=== PATIENT | male | born 1970 | race Caucasian/White ===

== ENCOUNTER 2021-01-27 14:24 | Emergency (ER) | payer OTHER, SELFPAY ==
--- NOTE | 2021-01-27 14:46 | ED.GENADULT ---
HPI - General Adult General Chief complaint: Skin/Abscess/Foreign Body Stated complaint: Rash Source: patient Mode of arrival: ambulatory Limitations: no limitations History of Present Illness HPI narrative: Nima is a previously healthy 50M that presented to clinic with a new rash. It started yesterday at work at [employer] A coworker has the same rash at the same time. It is a very itchy maculopapular rash mostly on his right upper extremity going up to his neck. There are a few spots on his left arm. He denies any other symptoms. He is not aware of any new irritants at work or home. Related Data Allergies Allergy/AdvReac Type Severity Reaction Status Date / Time No Known Allergies Allergy Verified 01/27/21 15:03 Review of Systems Constitutional: Constitutional: Reports no additional constitutional complaints Eyes: Eyes: Reports no additional eye complaints ENT: Reports system reviewed and no additional complaints, except as documented Cardiovascular: Cardiovascular: Reports no additional cardiovascular complaints Respiratory: Respiratory: Reports no additional respiratory complaints Gastrointestinal: Gastrointestinal: Reports no additional gastrointestinal complaints Genitourinary: Genitourinary: Reports no additional male genitourinary complaints Musculoskeletal: Musculoskeletal: Reports no additional musculoskeletal complaints Integumentary/Breasts: Skin/Breast: Reports as per HPI Neurologic: Reports system reviewed and no additional complaints, except as documented Psychiatric: Psychiatric: Reports no additional psychiatric complaints Endocrine: Endocrine: Reports no additional endocrine complaints Hematologic/Lymphatic: Hematologic/Lymphatic: Reports no additional hematologic/lymphatic complaints Allergic/Immunologic: Allergic/Immunologic: Reports no additional allergic/immunologic complaints Exam Const: General: no acute distress and alert Orientation/consciousness: patient oriented x3 Limitations: No altered mental status HENMT: Head: normal to inspection Mouth: Yes Normal oral and palatal mucosa present Eyes: Conjunctivae: conjunctivae normal Pupils: Equal, round and reactive pupils present Neck: Neck: normal visual inspection Chest: Chest palpation & inspection: normal inspection of the chest Resp: Effort & Inspection: normal respiratory effort, not labored and not tachypneic Cardio: Rate: regular rate Heart sounds: no murmurs Skin: Other: Maculopapular erythematous rash with excoriation from the right mid forearm up to the right side of the neck. There was a small amount present on the left as well. Neuro: General: patient oriented x3 and moves all extremities Extrem: General: normal to inspection Psych: Mental Status: mental status grossly normal Course Vital Signs Vital signs: Vital Signs Temperature 98.1 F 01/27/21 14:55 Pulse Rate 63 01/27/21 14:55 Respiratory Rate 20 01/27/21 14:55 Blood Pressure 116/82 01/27/21 14:55 Pulse Oximetry 97 01/27/21 14:55 Temperature 98.1 F 01/27/21 14:55 Pulse Rate 63 01/27/21 14:55 Respiratory Rate 20 01/27/21 14:55 Blood Pressure 116/82 01/27/21 14:55 Pulse Oximetry 97 01/27/21 14:55 Medical Decision Making Vital Signs Vital Signs: Vital Signs Temperature 98.1 F 01/27/21 14:55 Pulse Rate 63 01/27/21 14:55 Respiratory Rate 20 01/27/21 14:55 Blood Pressure 116/82 01/27/21 14:55 Pulse Oximetry 97 01/27/21 14:55 Temperature 98.1 F 01/27/21 14:55 Pulse Rate 63 01/27/21 14:55 Respiratory Rate 20 01/27/21 14:55 Blood Pressure 116/82 01/27/21 14:55 Pulse Oximetry 97 01/27/21 14:55 Discharge Plan Discharge Clinical Impression: Contact dermatitis Patient Disposition: Home, Self-Care Condition: Stable Instructions: Contact Dermatitis (ED) Additional Instructions: Please return to the ED for any new, concerning or worsening symptoms. Prescript
[2021-01-27 14:55] VITALS: BP 116/82; PULSE 63; RESP 20; TEMP 36.7; O2SAT 97
== END 2021-01-27 15:09 | disposition home or self-care (01) ==
PROVIDERS: Emergency Provider Family Medicine
DX: L25.9 Unspecified contact dermatitis, unspecified cause (principal)
CPT/HCPCS: 99283

== ENCOUNTER 2024-09-14 12:46 | Emergency (ER) | payer OTHER, SELFPAY ==
--- NOTE | ~2024-09-14 | CT_ITS ---
EXAMINATION: CT abdomen pelvis wo con DATE: 09/14/2024 13:18 INDICATION: Right flank pain and low back pain TECHNIQUE: Computed tomography (CT) of the abdomen and pelvis was performed without intravenous contr ast. Automated exposure control and iterative reconstruction technique were employed. The dose-length product was 969.16 mGy-cm. COMPARISON: None FINDINGS: Lung bases are clear. Heart size normal. No pericardial or pleural effusion. Hepatic cysts the larges t measuring 2.4 cm the right hepatic lobe. Gallbladder, spleen, pancreas, bilateral adrenal glands an d right kidney are normal. Parapelvic cysts at the left renal hilum. Prostatomegaly. Bladder is nemo l. Bowels including the appendix are normal. No free intraperitoneal gas or fluid. No pathologically enlarged abdominal or pelvic lymphadenopathy. Mild lumbar spondylosis. IMPRESSION: 1. No acute intra-abdominal/pelvic process. Reviewed, dictated and finalized at location A.
[2024-09-14 12:48] VITALS: BP 145/101; PULSE 65; RESP 18; TEMP 36.6; O2SAT 93
[2024-09-14] MEDS: KETOROLAC (*BKC) 60 MG/2 ML VIAL IM (13:22)
--- NOTE | 2024-09-14 13:50 | ED.BACK ---
HPI - Back Pain/Injury General Chief Complaint: Back Pain/Injury Stated Complaint: right flank pain Time Seen by Provider: 09/14/24 12:48 Source: patient and family Mode of arrival: ambulatory Limitations: no limitations History of Present Illness HPI Narrative: This is a 54-year-old male with no significant past medical history that presents with right lower back pain radiating into his right leg with no saddle paresthesias no fever chills no known injury no abdominal pain no flank pain and no chest pain or shortness of breath. MD elicited complaint: back pain Onset (ago): hour(s) Timing: constant Severity: severe Pain scale (0-10): 8 Similar Symptoms Previously: No Quality: aching and spasming Location: right lower back Radiation: right upper leg Exacerbating factors: movement and sitting upright Relieving factors: immobilization Related Data Allergies Allergy/AdvReac Type Severity Reaction Status Date / Time No Known Allergies Allergy Verified 09/14/24 12:57 Review of Systems Review of Systems: All systems reviewed & are unremarkable except as noted in HPI and below PMFSH Past Medical History Medical History Patient denies medical problems Exam Const: General: healthy appearing and no acute distress Nutritional Appearance: well nourished Orientation/consciousness: patient oriented x3 Limitations: no limitations HENMT: Head: normal to inspection Neck: Neck: normal visual inspection, no lymphadenopathy and no meningeal signs Chest: Chest palpation & inspection: normal inspection of the chest Resp: Effort & Inspection: normal respiratory effort Auscultation: clear to auscultation bilaterally Cardio: Rate: regular rate Rhythm: regular rhythm GI: Auscultation: normal bowel sounds : General: Yes bladder normal to palpation Back/Spine/Pelvis: Back: no CVA tenderness Skin: General skin exam: normal color Rashes: no rashes Wounds: no wounds Neuro: General: patient oriented x3, moves all extremities, no meningeal signs and no focal motor deficits Extrem: Other: positive straight leg raising test on the right with some L5 right paravertebral tenderness with palpation Course Course Emergency Course: patient had 60mg IM Toradol and after reassessment pain level has significantly improved, CT scan shows no intra into her abdominal process. Vital Signs Vital signs: Vital Signs Temperature 36.6 C 09/14/24 12:48 Pulse Rate 65 09/14/24 12:48 Respiratory Rate 18 09/14/24 12:48 Blood Pressure 145/101 H 09/14/24 12:48 Pulse Oximetry 93 09/14/24 12:48 Oxygen Delivery Room Air 09/14/24 12:48 Temperature 36.6 C 09/14/24 12:48 Pulse Rate 65 09/14/24 12:48 Respiratory Rate 18 09/14/24 12:48 Blood Pressure 145/101 H 09/14/24 12:48 Pulse Oximetry 93 09/14/24 12:48 Oxygen Delivery Room Air 09/14/24 12:48 Critical Care Time Critical Care Time Critical Care Time: No Discharge Plan Discharge Clinical Impression: Sciatica Qualifiers: Laterality: right Qualified Code(s): M54.31 - Sciatica, right side Strain of lumbar region Qualifiers: Encounter type: initial encounter Qualified Code(s): S39.012A - Strain of muscle, fascia and tendon of lower back, initial encounter Patient Disposition: Home Condition: Stable Instructions: Antibiotic Form, Sciatica (ED), Acute Low Back Pain (ED) Additional Instructions: Advised patient to take medication as prescribed and follow-up with primary care physician within next 3 to 5 days for further evaluation and treatment. Patient Language: Luxembourgish Prescriptions: New tramadol 50 mg tablet 50 mg PO Q6H PRN (Reason: pain) Qty: 20 0RF cyclobenzaprine 10 mg tablet 10 mg PO TID Qty: 20 0RF No Action betamethasone dipropionate 0.05 % cream 1 applic topical BID PRN (Reason: rash) Qty: 45 0RF Follow-up/Referrals: Livier Alarcon MD [Primary Care Provider] - Time of Disposition: 13:55
[2024-09-14 14:05] VITALS: BP 128/85; PULSE 65; RESP 16; TEMP 36.6; O2SAT 95
== END 2024-09-14 14:05 | disposition home or self-care (01) ==
PROVIDERS: Emergency Provider Emergency Medicine; PCP Internal Medicine
DX: M54.31 Sciatica, right side (principal); S39.012A Strain of muscle, fascia and tendon of lower back, initial encounter; X58.XXXA Exposure to other specified factors, initial encounter
CPT/HCPCS: 74176; 96372; 99284; J1885